=== PATIENT | female | born 1975 | race Two or more races ===

== ENCOUNTER 2020-03-12 08:28 | Outpatient (CLI) | payer OTHER | END 2020-03-12 08:37 | disposition home or self-care (01) | LOC: MAMO-SONO 08:28 | PROVIDERS: ATTEND Obstetrics & Gynecology | DX: Z12.31 Encounter for screening mammogram for malignant neoplasm of breast (principal); N64.4 Mastodynia; D25.0 Submucous leiomyoma of uterus; D50.0 Iron deficiency anemia secondary to blood loss (chronic) ==

== ENCOUNTER 2020-04-04 10:08 | Outpatient (CLI) | payer OTHER | END 2020-04-04 10:27 | disposition home or self-care (01) | LOC: RAD 10:08 | PROVIDERS: ATTEND Obstetrics & Gynecology | DX: R07.89 Other chest pain (principal); D25.1 Intramural leiomyoma of uterus ==

== ENCOUNTER 2021-04-20 10:55 | Outpatient (CLI) | payer OTHER | END 2021-04-20 11:20 | disposition home or self-care (01) | LOC: MAMO-SONO 10:55 | PROVIDERS: ATTEND Obstetrics & Gynecology | DX: R92.1 Mammographic calcification found on diagnostic imaging of breast (principal); D25.0 Submucous leiomyoma of uterus; Z12.31 Encounter for screening mammogram for malignant neoplasm of breast ==

== ENCOUNTER → 2022-05-10 | Outpatient (CLI) | payer OTHER | END | disposition home or self-care (01) | LOC: MAMO-SONO 11:13 | PROVIDERS: ATTEND Obstetrics & Gynecology | DX: N64.4 Mastodynia (principal); D25.0 Submucous leiomyoma of uterus; Z12.31 Encounter for screening mammogram for malignant neoplasm of breast ==

== ENCOUNTER 2022-10-14 07:53 | Outpatient (CLI) | payer OTHER | END 2022-10-14 07:54 | disposition home or self-care (01) | LOC: SONOGRAMA 07:53 | PROVIDERS: ATTEND Obstetrics & Gynecology | DX: N92.4 Excessive bleeding in the premenopausal period (principal); D25.2 Subserosal leiomyoma of uterus ==

== ENCOUNTER 2023-07-04 11:00 | Outpatient (CLI) | payer OTHER | END 2023-07-04 11:33 | disposition home or self-care (01) | LOC: MAMO-SONO 11:00 | PROVIDERS: ATTEND Obstetrics & Gynecology | DX: N64.4 Mastodynia (principal); D25.2 Subserosal leiomyoma of uterus; Z12.31 Encounter for screening mammogram for malignant neoplasm of breast ==